=== PATIENT | female | born 1985 ===

== ENCOUNTER 2023-09-24 01:19 | Inpatient (IN) | payer OTHER ==
[2023-09-24 01:42] VITALS: BMI 28.5
[2023-09-24] MEDS ORDERED: MAGNESIUM HYDROX 2400MG/30ML ORAL SUSPENSION 30 ML CUP PO PRN (02:14)
[2023-09-24] MEDS ORDERED: NALOXONE (NARCAN) HCL 4 MG/0.1 ML SPRAY NS PRN (02:14)
[2023-09-24] MEDS ORDERED: POLYETHYLENE GLYCOL (HEALTHYLAX) 3350 17 GM PACKET PO PRN (02:14)
[2023-09-24] MEDS ORDERED: LOPERAMIDE HCL 2 MG CAPSULE PO PRN (02:14)
[2023-09-24] MEDS ORDERED: ACETAMINOPHEN 325 MG TABLET (FP) PO PRN (02:14)
[2023-09-24] MEDS ORDERED: NALOXONE HCL 0.4 MG/ML VIAL IM PRN (02:14)
[2023-09-24] MEDS ORDERED: MAG HYDROX/AL HYDROX/SIMETH 30 ML UNIT-DOSE CUP PO PRN (02:14)
[2023-09-24] MEDS ORDERED: BENZONATATE 200 MG CAPSULE PO PRN (02:14)
[2023-09-24] MEDS ORDERED: guaiFENesin 600 MG TABLET.ER (FP) PO PRN (02:14)
[2023-09-24] MEDS ORDERED: BISMUTH SUBSALICYLATE 524 MG/30 ML PO PRN (02:14)
[2023-09-24] MEDS ORDERED: DICYCLOMINE HCL 10 MG CAPSULE PO PRN (02:14)
[2023-09-24] MEDS ORDERED: IBUPROFEN 400 MG TABLET (FP) PO PRN (02:14)
[2023-09-24] MEDS ORDERED: ONDANSETRON *ODT* 4 MG TABLET SL PRN (02:14)
[2023-09-24] MEDS ORDERED: BENZOCAINE/MENTHOL (CHLORASEPTIC ) LOZENGE MM PRN (02:14)
[2023-09-24] MEDS ORDERED: NICOTINE POLACRILEX 2 MG LOZENGE BC PRN (02:14)
[2023-09-24] MEDS: LORazepam 1 MG TABLET PO PRN (03:22)
[2023-09-24] MEDS: LORazepam 2 MG TABLET PO SCH (05:36)
[2023-09-24 06:24] VITALS: TEMP 97.8
[2023-09-24] MEDS: NICOTINE 14 MG/24 HOURS TOPICAL PATCH TD SCH (09:21)
[2023-09-24] MEDS: levETIRAcetam 250 MG TABLET PO SCH (09:21)
[2023-09-24] MEDS: PRENATAL VITAMINS W/ FOLIC ACID TABLET (FP) PO SCH (09:21)
[2023-09-24] MEDS: IBUPROFEN 600 MG TABLET (FP) PO PRN (09:23)
[2023-09-24] MEDS ORDERED: diazePAM 5 MG TABLET PO PRN (10:15)
[2023-09-24] MEDS: diazePAM 5 MG TABLET PO SCH (10:59)
[2023-09-24 17:10] VITALS: BP 150/110; PULSE 74; RESP 18
[2023-09-24] MEDS: hydrOXYzine PAMOATE 25 MG CAPSULE (FP) PO PRN (17:16)
[2023-09-24] MEDS: cloNIDine HCL 0.1 MG TABLET PO PRN (17:51)
[2023-09-24] MEDS ORDERED: THIAMINE 100 MG TABLET PO SCH (22:00)
[2023-09-24] MEDS ORDERED: MELATONIN 5 MG TABLETS PO SCH (22:00)
[2023-09-25] MEDS ORDERED: LORazepam 1 MG TABLET PO SCH (05:00)
[2023-09-26] MEDS ORDERED: LORazepam 0.5 MG TABLET PO PRN
[2023-09-26] MEDS ORDERED: LORazepam 0.5 MG TABLET PO SCH (05:00)
[2023-09-26] MEDS ORDERED: diazePAM 5 MG TABLET PO SCH (06:00)
[2023-09-27] MEDS ORDERED: LORazepam 0.5 MG TABLET PO ONE (05:00)
[2023-09-27] MEDS ORDERED: diazePAM 5 MG TABLET PO SCH (06:00)
[2023-09-28] MEDS ORDERED: diazePAM 5 MG TABLET PO ONE (06:00)
== END 2023-09-24 18:24 | disposition left against medical advice (07) | DRG 770 ==
LOC: YASAS 01:19 → Y3N 02:23
PROVIDERS: ADMIT Allergy & Immunology; ATTEND Allergy & Immunology
PROC: HZ2ZZZZ Detoxification Services for Substance Abuse Treatment (ICD-10-PCS; principal; 2023-09-24)
DX: F10.230 Alcohol dependence with withdrawal, uncomplicated (principal); F17.210 Nicotine dependence, cigarettes, uncomplicated; F19.24 Other psychoactive substance dependence with psychoactive substance-induced mood disorder; F31.9 Bipolar disorder, unspecified; F43.10 Post-traumatic stress disorder, unspecified; I10 Essential (primary) hypertension; I25.2 Old myocardial infarction; G62.9 Polyneuropathy, unspecified; K70.30 Alcoholic cirrhosis of liver without ascites; Z62.810 Personal history of physical and sexual abuse in childhood; Z91.410 Personal history of adult physical and sexual abuse; Z63.8 Other specified problems related to primary support group; Z86.73 Personal history of transient ischemic attack (TIA), and cerebral infarction without residual deficits; Z88.8 Allergy status to other drugs, medicaments and biological substances
CPT/HCPCS: 36415; 80305; 80307; 81025; 93005; 93010